=== PATIENT | male | born 1970 | race Caucasian/White ===

== ENCOUNTER 2018-09-22 01:46 | Observation (INO) | payer BC, SELFPAY ==
[2018-09-22] VITALS (9 sets, daily range): BP systolic 121–157; BP diastolic 72–118; PULSE 79–99; RESP 16–24; TEMP 36.3–36.9; O2SAT 93–98; BMI 33.3
--- NOTE | 2018-09-22 | DI.RAD.S_ITS ---
PROCEDURE: XR ACUTE ABDOMEN SERIES INDICATIONS: f/u ct scan TECHNIQUE: One view chest and two views of the abdomen were acquired. COMPARISON: [facility], CT, CT ABDOMEN PELVIS W CON, 09/22/2018, 2:39. FINDINGS: Surgical changes and devices: None. Chest: Lungs are clear. Heart size is normal. No pleural effusions. No pneumoperitoneum. Abdomen: Multiple distended small bowel loops are seen within the left upper quadrant, demonstrating air-fluid levels and suggestion bowel wall thickening. Air and stool are seen within the colon. No suspicious calcifications. Visualized solid organ contours appear normal. Contrast is identified within the urinary bladder. Bones: No suspicious bony lesions. IMPRESSION: 1. Small bowel obstruction predominantly seen within the left upper quadrant has not significantly changed. 2. No acute cardiopulmonary process of the chest. Dictated by: Wisam Berrios M.D. on 09/22/2018 at 10:57 Approved by: Wisam Berrios M.D. on 09/22/2018 at 10:59
--- NOTE | 2018-09-22 | DI.RAD.S_ITS ---
PROCEDURE: FL UPPER GI SMALL BOWEL INDICATIONS: clarify obstructive process. therapeutic COMPARISON: [facility], CT, CT ABDOMEN PELVIS W CON, 09/22/2018, 2:39. [facility], CR, XR ACUTE ABDOMEN SERIES, 09/22/2018, 11:32. FINDINGS: Upper GI and small bowel follow-through was performed with Gastrografin. KUB: Preprocedural colored liquid plastic applier film shows a nonspecific bowel gas pattern with abundant proximal small bowel gas and proximal colonic gas and paucity of distal small bowel gas. No suspicious abdominal calcifications. Visualized solid organ contours appear normal in size. No suspicious bony abnormalities. Esophagus: There is normal peristalsis. No strictures, extrinsic mass effects, or diverticula. No hiatal hernias or elicited gastroesophageal reflux. Stomach: The stomach nondistended and has normal rugal fold thickness. The pylorus and duodenal bulb have a normal morphology. Small bowel: Proximal small bowel loops are slightly distended measuring up to 5 cm. Distal small bowel loops are normal in caliber. There is rapid transit time with oral contrast reaching colon less than 20 minutes. Jejunal and ileal folds are normal. No strictures, intraluminal masses, or extrinsic mass effects. The terminal ileum is identified and appears normal. IMPRESSION: There is rapid small bowel transit time with the oral contrast reaching colon within 20 minutes. The proximal small bowel loops are dilated measuring up to 5 cm. Distal small bowel loops are normal in caliber. Small bowel obstruction seen on CT is likely partial or intermittent. Dictated by: Zayda Merino M.D. on 09/23/2018 at 10:22 Approved by: Zayda Merino M.D. on 09/23/2018 at 10:31
[2018-09-22] MEDS: ONDANSETRON 4 MG/2 ML INJ IV ×4 (02:21→19:24)
[2018-09-22 02:22] LABS: Add Manual Diff / Slide Review NO; Basophils Absolute Auto 100 /uL (0-100); Basophils Percent Auto 0.5 % (0-2); Eosinophils Absolute Auto 200 /uL (0-450); Eosinophils Percent Auto 1.8 % (2-4); Hematocrit 46.9 % (41-53); Hemoglobin 16.1 g/dL (13.5-17.5); Lymphocytes Absolute Auto 2200 /uL (1100-4500); Lymphocytes Percent Auto 23.3 % (25-40); Mean Corpuscular HGB Conc 34.4 % (30-36); Mean Corpuscular Hemoglobin 29.5 PG (26-34); Mean Corpuscular Volume 85.9 fL (80-100); Monocytes Absolute Auto 600 /uL (0-900); Monocytes Percent Auto 6.8 % (3-14); Neutrophils Absolute Auto 6400 /uL (1500-7000); Neutrophils Percent Auto 67.6 % (50-75); Platelet Count 233 X10^3/uL (150-400); Red Blood Cell Count 5.46 X10^6/uL (4.5-5.9); White Blood Cell Count 9.5 X10^3/uL (4.5-11.0)
[2018-09-22] MEDS: SODIUM CHLORIDE 0.9% 1,000 ML 1000 ML IV (02:22)
[2018-09-22] MEDS: KETOROLAC 60 MG/2 ML VIAL 30 MG IV (02:22)
[2018-09-22 02:27] LABS: Alanine Aminotransferase 40 IU/L (21-72); Albumin 4.6 g/dL (3.5-5.0); Albumin Globulin Ratio 1.2 (1.0-2.8); Alkaline Phosphatase 153 U/L (38-126); Aspartate Aminotransferase 30 IU/L (17-59); Bilirubin Total 0.6 mg/dL (0.2-1.3); Blood Urea Nitrogen 12 mg/dL (9-20); Calcium 10.3 mg/dL (8.4-10.2); Carbon Dioxide 28 mmol/L (22-32); Chloride 99 mmol/L (98-107); Estimated Glomerular Filt Rate > 60.0 mL/min (>60); Globulin 3.8 g/dL (1.7-4.1); Glucose 368 mg/dL (70-100); HEMOLYSIS 22 (0-50); Lipase 76 U/L (23-300); Potassium 4.2 mmol/L (3.4-5.1); Sodium 139 mmol/L (137-145); Total Protein 8.4 g/dL (6.3-8.2)
--- NOTE | 2018-09-22 02:34 | DI.CT.S_ITS ---
PROCEDURE: CT ABDOMEN PELVIS W CON INDICATIONS: abdominal pain, multiple hernias TECHNIQUE: After the administration of oral and intravenous contrast, 5 mm thick sections acquired from the diaphragms to the symphysis. 5 mm thick coronal and sagittal reformats were performed. For radiation dose reduction, the following was used: automated exposure control, adjustment of mA and/or kV according to patient size. COMPARISON: None. FINDINGS: Image quality: Excellent. ABDOMEN: Lung bases: There is minimal dependent atelectasis. Heart size is normal. Solid organs: There is mild hypoattenuation of the liver consistent with fatty infiltration. The gallbladder is nondistended without calcified gallstones. Biliary system is non-dilated. Pancreas enhances normally. Spleen is normal in size and enhancement. No adrenal nodules. Kidneys are normal in size and enhancement, without hydronephrosis. Peritoneum and bowel: There is segmental dilatation of multiple loops of small bowel measuring up to 4.3 cm in diameter with air-fluid levels. There is an associated transition point within a small left periumbilical hernia with herniation of a short segment of small bowel. Distal to this hernia, the small bowel loops are nondistended. The findings are consistent with a small bowel obstruction. There is also a small right periumbilical and a small umbilical hernia containing short segments of small bowel without evidence of associated obstruction or strangulation. Surgical bowel sutures are demonstrated within the midabdomen. There is colonic diverticulosis without diverticulitis. No free fluid or air. Nodes and vessels: No retroperitoneal or mesenteric adenopathy. Aorta and inferior vena cava are normal in caliber. Miscellaneous: As noted above, there are bilateral small paraumbilical hernias and a small umbilical hernia. These contain short segments of small bowel with associated bowel section involving the left periumbilical hernia. PELVIS: Genitourinary: Bladder wall thickness is normal. Miscellaneous: No inguinal hernias or adenopathy. Bones: No suspicious bony lesions. No vertebral body compression fractures. IMPRESSION: 1. Small bowel obstruction associated with a herniated short segment of bowel in a left periumbilical hernia as described. No associated definite bowel wall thickening, free fluid or free air. 2. Additional small umbilical and right cerebellar hernias containing short segments of small bowel without associated obstruction or strangulation. 3. Colonic diverticulosis without acute diverticulitis. 4. Hepatic steatosis. Findings discussed with Dr. Munguia on 09/22/18 at 3:16 AM by [facility] radiology services. Dictated by: Prasanna Gomez M.D. on 09/22/2018 at 8:21 Approved by: Prasanna Gomez M.D. on 09/22/2018 at 8:28
--- NOTE | 2018-09-22 02:34 | ED.ABDPAIN ---
HPI - Abdominal Pain General Chief Complaint: Abdominal Pain Stated Complaint: abdominal pain vomiting Time Seen by Provider: 09/22/18 02:12 Source: patient Mode of arrival: ambulatory Limitations: no limitations History of Present Illness HPI narrative: Patient is a 48-year-old male presenting with abdominal pain and vomiting ongoing for the last 5-6 hours. She has a history of colectomy and has a multiple abdominal hernias for which he wears an abdominal binder for. He has not had any fever or chills. He had a regular bowel movement this morning. He is diabetic and has been taking his insulin. He feels like pain Comes from his back on both sides and wraps around the his abdomen. No radiation to the groin. He cannot stop vomiting and the pain is quite intense. MD complaint: abdominal pain Onset (ago): hour(s) Pain Consistency: constant Related Data Home Medications Medication Instructions Recorded Confirmed . (No Home Medications) #0 08/07/06 insulin glargine [Lantus U-100 42 unit SUBCUT DAILY 09/22/18 09/22/18 Insulin] metformin 1,000 mg PO BID 09/22/18 09/22/18 Allergies Allergy/AdvReac Type Severity Reaction Status Date / Time No Known Drug Allergies Allergy Verified 09/22/18 03:04 Review of Systems Review of Systems ROS Unobtainable: All systems reviewed & are unremarkable except as noted in HPI and below Constitutional Denies chills, Denies fever(s), Denies lethargy and Denies weakness Cardiovascular Denies chest pain, Denies irregular heart rhythm, Denies lightheadedness, Denies palpitations, Denies dyspnea, Denies dyspnea on exertion and Denies orthopnea Respiratory Denies cough, Denies dyspnea, Denies dyspnea on exertion and Denies wheezing Gastrointestinal Gastrointestinal: Reports as per HPI, Reports abdominal pain, Reports nausea and Reports vomiting Genitourinary Denies hematuria, Denies flank pain, Denies urinary incontinence and Denies urinary urgency Musculoskeletal Denies back pain, Denies muscle weakness, Denies numbness and Denies tingling Integumentary/Breasts Denies pruritus, Denies erythema, Denies rash and Denies wounds Neurologic Denies numbness, Denies tingling and Denies weakness Endocrine Denies palpitations Allergic/Immunologic Denies wheezing PFSH Medical History Diabetes (Acute) Surgical History H/O colectomy (Acute) Social History Smoking Status: Former smoker Exam Initial Vital Signs Initial Vital Signs: Vital Signs Temperature 97.6 F 09/22/18 01:54 Pulse Rate 96 H 09/22/18 01:54 Respiratory Rate 24 09/22/18 01:54 Blood Pressure 151/118 H 09/22/18 01:54 Pulse Oximetry 98 09/22/18 01:54 GENERAL: actively vomiting diaphoretic appears in pain HEENT: Head atraumatic,EOMI, pupils reactive, CARDIOVASCULAR: Regular rate and rhythm without murmurs, rubs or gallops. RESPIRATORY: Breath sounds equal bilaterally, no wheezes rales or rhonchi. ABDOMEN: obese relatively soft multiple scars, some left upper quadrant pain without guarding or rebound hernias appreciated but easily reducible EXTREMITIES: Normal range of motion, no clubbing or edema. Neurovascularly intact NEUROLOGICAL: Alert and oriented x4.Normal gait and speech. SKIN: Warm, dry, no laceration, no petechiae, no rashes or lesions. Course Orders Ordered: ED Orders 09/22/18 02:09 Complete Blood Count AUTO DIFF Stat Comprehensive Metabolic Panel Stat Lipase Stat 09/22/18 02:34 CT abdomen pelvis w con Stat Sodium Chloride (Normal Saline 0.9%) 1,000 mls @ 1,000 mls/hr IV CONT THERON Last Infusion: 09/22/18 03:30 Dose: 0 mls/hr Admin: 09/22/18 02:22 Dose: 1,000 mls/hr Morphine Sulfate (Morphine) 2 mg IV Q4HR PRN PRN Reason: Pain, Moderate (4-6) Ondansetron HCl (Zofran) 4 mg IV Q4HR PRN PRN Reason: Nausea And Vomiting Discontinued Medications Ketorolac Tromethamine (Toradol) 30 mg IV NOW ONE Stop: 09/22/18 02:13 Last Admin: 09/22/18 02:22 Dose: 30 mg Morphine Sulfate (Morphine) 4 mg IV NOW ONE Stop: 09/22/18 03:04 Last Admin: 09/22/18 03:04 Dose: 4 mg Ondansetron HCl (Zofran) 4 mg IV NOW ONE Stop: 09/22/18 02:13 Last Admin: 09/22/18 02:21 Dose: 4 mg Vital Signs - 8 hr 09/22/18 01:54 09/22/18 02:30 09/22/18 03:21 Temperature 97.6 F Pulse Rate 96 H 80 99 H Respiratory Rate 24 21 19 Blood Pressure 151/118 H Blood Pressure [Left Arm] 155/90 H 157/87 H Pulse Oximetry 98 94 93 09/22/18 03:30 Temperature Pulse Rate 97 H Respiratory Rate 21 Blood Pressure Blood Pressure [Left Arm] 152/88 H Pulse Oximetry 96 MDM - Abdominal Pain Lab Data Attestation: I reviewed the patient's lab results. Result diagrams: 09/22/18 02:09 09/22/18 02:09 Lab Results 09/22/18 09/22/18 Range/Units 02:09 02:09 WBC 9.5 (4.5-11.0) X10^3/uL RBC 5.46 (4.5-5.9) X10^6/uL Hgb 16.1 (13.5-17.5) g/dL Hct 46.9 (41-53) % MCV 85.9 (80-100) fL MCH 29.5 (26-34) PG MCHC 34.4 (30-36) % RDW 14.0 (11.6-14.8) % Plt Count 233 (150-400) X10^3/uL Neut % (Auto) 67.6 (50-75) % Lymph % (Auto) 23.3 L (25-40) % [place] % (Auto) 6.8 (3-14) % Eos % (Auto) 1.8 L (2-4) % Baso % (Auto) 0.5 (0-2) % Neut # (Auto) 6400 (2774-4572) /uL Lymph # (Auto) 2200 (9549-7321) /uL [place] # (Auto) 600 (0-900) /uL Eos # (Auto) 200 (0-450) /uL Baso # (Auto) 100 (0-100) /uL Sodium 139 (137-145) mmol/L Potassium 4.2 (3.4-5.1) mmol/L Chloride 99 (98-107) mmol/L Carbon Dioxide 28 (22-32) mmol/L BUN 12 (9-20) mg/dL Creatinine 0.60 L (0.66-1.25) mg/dL Estimated GFR > 60.0 (>60) mL/min BUN/Creatinine Ratio 20.0 (6-22) Glucose 368 H (70-100) mg/dL Calcium 10.3 H (8.4-10.2) mg/dL Total Bilirubin 0.6 (0.2-1.3) mg/dL AST 30 (17-59) IU/L ALT 40 (21-72) IU/L Alkaline Phosphatase 153 H (38-126) U/L Total Protein 8.4 H (6.3-8.2) g/dL Albumin 4.6 (3.5-5.0) g/dL Globulin 3.8 (1.7-4.1) g/dL Albumin/Globulin Ratio 1.2 (1.0-2.8) Lipase 76 (23-300) U/L Point of care testing: Urine Dip Bedside Urine Glucose 1000 mg/dl Bedside Urine Bilirubin - Negative Bedside Urine Ketone - Negative Urine Specific [place] 1.015 Bedside Urine Occult Blood - Negative Bedside Urine pH 7.0 Bedside Urine Protein +/- 15 Bedside Urine Urobilinogen - Negative Bedside Urine Nitrite - Negative Bedside Urine Leukocytes - Negative Esterase Imaging Data CT scan - abdomen: 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 There is right periumbilical hernia containing loops of small bowel without evidence of obstruction. There is left periumbilical hernia containing loops of small bowel with a developing small bowel obstruction. There is diverticulosis without CT evidence of diverticulitis. there is a surgical suture line in the right rectosigmoid. There is a surgical suture line in the transverse colon. Bladder appears his morphologically unremarkable and there are no stones. Multiple phleboliths in the pelvis. MDM Narrative Medical decision making narrative: patient initially did not want any narcotics due to severe constipation from his surgeries. He was initially given Toradol he says it minimally helped. He was agreeable to morphine. After morphine his pain resolved completely. No longer feeling nauseated abdomen is reexamined and is soft. CT does show partial small bowel obstruction. His symptoms were quite severe for multiple hours prior to arrival. At this point at least should be observed. Dr. Avendano updated patient's symptoms test results agrees with observation requests keeping him NPO. Discharge Plan Departure Patient Disposition: Admitted as Observation Clinical Impression: Partial small bowel obstruction Discharge Date/Time: 09/22/18 03:58 Interventions: ED Discharge Assessment Last Done: 09/22/18 03:57 Admit Date/Time: 09/22/18 03:48 Admit Provider: Goran Avendano
[2018-09-22] MEDS: MORPHINE 4 MG/ML INJ IV (03:04)
--- NOTE | 2018-09-22 05:08 | PC.NURSE ---
Pt admitted at 0405 as AxOx3 very pleasant, ambulating independently. Accompanied by Letty. Has an abdominal binder on for multiple abdominal hernias protruding in stomach for which the LUQ hernia appears to be causing the obstruction as per patient. He states that that particular hernia has been getting larger over a long period of time as well and has some concerns about that. He has had multiple GI surgeries and has had part of his colon removed and resected and had a colostomy at one point that has been reversed. He has about 3-4 BMs a day. He had a BM about an hour before being admitted to the ER he stated. His Bowel sounds are hyperactive and he states he is passing gas. Abdomen is firm, distended, tender, obvious multiple hernias and scars. Reports pain at a 3 out of 10 and tolerable. Reports no nausea at this time after having received Zofran in ER. Stated he vomited every 3-4min at home before coming in. He has +1 pitting edema in his b/l Lower ext for which he is aware and stated in the past he had been on Lasix for it but got off of it because it caused him heart palpitations. Kept NPO. NS@125mL/hr running as ordered.
[2018-09-22] MEDS: SODIUM CHLORIDE 0.9% 1,000 ML 125 ML IV ×3 (05:15→19:47)
--- NOTE | 2018-09-22 08:56 | PC.NURSE ---
Addendum entered by Nayely Carreno R.N. 09/22/18 15:26: Approx 1400 patient C/O sudden onset of severe abd pain and nausea. Reported he feels like the hernia in LUQ abd has popped back out since the doctor was here. Nausea resolved after admin of Zofran. Reported pain tolerable once the nausea resolved. Let him know about the small bowel follow through that will be done tomorrow morning, so likely he'll be staying the night. He wants to go home, but understands the rationale for staying. Original Note: Addendum entered by Nayely Carreno R.N. 09/22/18 11:33: Insulin given as ordered. CBG re-check at 1045 was 243. Patient is awake and alert, oriented X3. Nausea improved with IV Zofran. Reports 4/10 abd pain that is totally tolerable right now. BT+ X4, hypoactive. Reports he is passing flatus. States he thinks his belly is about back to normal with regard to distention. Given swabs and other stuff for oral care. Understands NPO status. IVF per orders, site in R hand WNL. Up independently in room. Transported off floor for x-ray at this time. Original Note: Blood sugar: CBG check [address] Avendano aware of the result. This senior grant writer confirmed that did, in fact, mean to order both IV and SubQ doses of insulin. Will plan to give both as ordered.
[2018-09-22] MEDS: INSULIN REGULAR 100 UNIT/ML 3 ML VIAL SUBCUT (10:00)
[2018-09-22] MEDS: INSULIN REGULAR 100 UNIT/ML 3 ML VIAL IV (10:02)
[2018-09-22] MEDS: MORPHINE 2 MG/ML INJ IV ×2 (11:53→19:23)
--- NOTE | 2018-09-22 12:36 | PM.HP.1 ---
History of Present Illness Date Patient Seen: 09/22/18 Time Patient Seen: 09:36 Chief complaint: abdominal pain vomiting Narrative: Patient is a gentleman admitted through the night with a partial small-bowel obstruction. Patient had the onset of abdominal pain about 4 or 5 hr before coming to the ER. He had been passing flatus and had a bowel movement even just before coming. The pain was quite severe and he was about doubled over due to it. He has had multiple abdominal procedures in the past. He has multiple hernias known. The pain has subsided. He does says some vague discomfort. Patient History Medical History Diabetes (Chronic) Surgical History H/O colectomy (Resolved) History of colostomy (Resolved) History of colostomy reversal (Resolved) Family & Social History Social History: household members family Prior Living Arrangements House Safety & Behavioral: Feels Safe in Current Yes Environment Been Physically Hurt or No Threatened By a Person Suicidal Ideation Description None Suicide Plan Description No Plan Tobacco & Substance use: Smoking Status Former smoker alcohol intake frequency other Substance Use Type does not use Meds Home Medications Medication Instructions Recorded Confirmed Type insulin glargine [Lantus U-100 42 unit SUBCUT DAILY 09/22/18 09/22/18 History Insulin] metformin 1,000 mg PO BID 09/22/18 09/22/18 History Allergies Allergy/AdvReac Type Severity Reaction Status Date / Time No Known Drug Allergies Allergy Verified 09/22/18 03:04 Review of Systems Review of Systems Patient wears glasses. Denies double vision pain is eyes earaches or sore throat. No tooth aches. No cough cold or asthma. No chest pain or murmurs. No heart problems. No black or bloody bowel movements. Last colonoscopy 3 years ago. No dysuria hematuria or kidney stones. No seizures or blackouts. No unusual bruising or bleeding. No problems with his thyroid but he is diabetic type 2 in his sugars usually run in the 130s to 140s range. Exam Vital Signs (past 8 hours): - 09/22/18 07:25 Temperature 97.4 F L Pulse Rate 98 H Respiratory Rate 18 Blood Pressure 130/78 Pulse Oximetry 95 Oxygen Delivery Method Room Air Narrative Exam Narrative: Co operative pleasant gentleman in no apparent distress. Eyes are nonicteric. Ears without lesion. Nasal septum is midline without polyps. Oral mucosa pink and moist teeth are intact. No nodes in the neck supraclavicular areas. Trachea is midline and mobile. No masses or tenderness in the neck or thyroid. Lungs are clear to auscultation without rales or rhonchi could percussion. Heart regular rate and rhythm without murmur gallop. No heave lift or thrill. Abdomen is protuberant possibly distended soft. He has multiple hernias. All of them feel reduced.(after abdominal x-rays were done I went back and re-examined the patient and they still of field reduced including the particular when of concern based on the CT in the x-rays.) NO OBVIOUS ENLARGEMENT OF LIVER OR SPLEEN. EXTREMITIES WITHOUT CYANOSIS CLUBBING EDEMA OR DEFORMITY. PATIENT IS ALERT AND ORIENTED X3. SPEECH RATE AND CONTENT ARE APPROPRIATE. AFFECT IS APPROPRIATE. Objective Imaging CT scan - abdomen: My impression: Suggest the presence of a partial small bowel obstruction secondary to hernia. Labs Result Diagrams: 09/22/18 02:09 09/22/18 02:09 Labs: Laboratory Results - last 24 hr 09/22/18 09/22/18 02:09 02:09 WBC 9.5 RBC 5.46 Hgb 16.1 Hct 46.9 MCV 85.9 MCH 29.5 MCHC 34.4 RDW 14.0 Plt Count 233 Neut % (Auto) 67.6 Lymph % (Auto) 23.3 L [place] % (Auto) 6.8 Eos % (Auto) 1.8 L Baso % (Auto) 0.5 Neut # (Auto) 6400 Lymph # (Auto) 2200 [place] # (Auto) 600 Eos # (Auto) 200 Baso # (Auto) 100 Sodium 139 Potassium 4.2 Chloride 99 Carbon Dioxide 28 BUN 12 Creatinine 0.60 L Estimated GFR > 60.0 BUN/Creatinine Ratio 20.0 Glucose 368 H Calcium 10.3 H Total Bilirubin 0.6 AST 30 ALT 40 Alkaline Phosphatase 153 H Total Protein 8.4 H Albumin 4.6 Globulin 3.8 Albumin/Globulin Ratio 1.2 Lipase 76 Assessment & Plan Plan: Assessment/Plan Narrative: X-rays do not exactly fit the clinical picture am seeing. I will order a small-bowel follow-through. I can't really feel incarcerated hernia and certainly not 1 causing obstruction. X-rays however suggest otherwise though he has clinically improved since the CT was performed. Will continue hydration IV fluids. Sugar control with as needed insulin.
[2018-09-22] MEDS: INSULIN ASPART 100 UNIT/ML INSULN PEN SUBCUT ×2 (14:27→19:24)
--- NOTE | 2018-09-22 21:22 | CM.MNRNOTE ---
Pt has had relatively uneventful evening. Med at 1915 w/ MS for discomfort ans zofran for nausea w/good relief. IVF NS @ 125 via pump into right hand w/o incidence. 1800 CBG = 164, 2u S/S given. Remains NPO for small bowel follow through in am. Call light w/in reach. Continue w/plan of care.
[2018-09-23] VITALS: BP 121/72; PULSE 96; RESP 16; TEMP 36.6; O2SAT 96
[2018-09-23] MEDS: SODIUM CHLORIDE 0.9% 1,000 ML 125 ML IV (03:56)
--- NOTE | 2018-09-23 04:02 | PC.NURSE ---
ASSUMED CARE OF PT AT 2300. PT SLEEPING DURING HAND-OFF REPORT. AWAKENS AT APPROX 0030. DENIES PAIN OR NAUSEA. ABD BINDER IN PLACE. IVF INFUSING PER ORDERS. AMBULATING IN ROOM AND HALLS INDEPENDENTLY. CALLING APPROPRIATELY FOR NEEDS.
[2018-09-23 05:00] VITALS: BP 122/69; PULSE 95; RESP 16; TEMP 36.7; O2SAT 97
[2018-09-23] MEDS: INSULIN ASPART 100 UNIT/ML INSULN PEN SUBCUT ×2 (05:54→12:30)
[2018-09-23 07:20] VITALS: BP 117/71; PULSE 85; RESP 16; TEMP 36.6; O2SAT 94
--- NOTE | 2018-09-23 08:08 | PC.NURSE ---
0805 Pt gone for [facility] via w/c.
--- NOTE | 2018-09-23 09:15 | PC.NURSE ---
0860 Pt returned from radiology via w/c, post sml bowel follow thru.
[2018-09-23 11:38] VITALS: BP 112/74; PULSE 76; RESP 18; TEMP 36.4; O2SAT 94
--- NOTE | 2018-09-23 15:15 | P.DS_ITS ---
History of Present Illness Chief complaint: abdominal pain vomiting Narrative: Patient is a gentleman admitted through the night with a partial small-bowel obstruction. Patient had the onset of abdominal pain about 4 or 5 hr before coming to the ER. He had been passing flatus and had a bowel movement even just before coming. The pain was quite severe and he was about doubled over due to it. He has had multiple abdominal procedures in the past. He has multiple hernias known. The pain has subsided. He does says some vague discomfort. Discharge Providers Date of admission: 09/22/18 03:48 Primary care physician: Godfrey Juarez MD Discharge provider: Goran Avendano MD Discharge Date: 09/23/18 Summary Discharge Diagnosis: Acute Partial small bowel obstruction secondary to incisional hernia. Resolved at discharge. Diabetes mellitus adult onset. The a chronic Obesity with a BMI of 39. Chronic Hospital Course: Patient was admitted for observation. His pain rapidly subsided. Initial exam failed to reveal any incarcerated hernia. There is mild tenderness. Patient underwent a small-bowel follow-through which showed rapid progress of contrast through the intestine to the colon. The patient's symptoms resolved. He tolerated a diet was discharged to follow up in the office as needed. He was advised to get his hernias fixed. He has multiple hernias I recommended that he see the hernia clinic at the [facility] for a repair of these complex hernias. Exam Vital Signs (past 8 hours): - 09/23/18 07:20 09/23/18 11:38 Temperature 97.8 F 97.5 F L Pulse Rate 85 76 Respiratory Rate 16 18 Blood Pressure 117/71 112/74 Pulse Oximetry 94 94 Oxygen Delivery Method Room Air Oxygen Flow Rate 0 Narrative Exam Narrative: Lungs are clear no rales or rhonchi heart regular rate and rhythm no murmur or gallop abdomen is protuberant soft nontender. Patient has hernias are noted all reducible. Objective Labs Result Diagrams: 09/22/18 02:09 09/22/18 02:09 Discharge Plan Discharge Plan Patient Disposition: Home Discharge comment: Resume your medications this evening. I would recommend that you be seen at the [facility] these complicated [facility]. Discharge Med Rec/Prescriptions Prescriptions: Continue metformin 1,000 mg Tablet 1,000 mg PO BID RF: 0 insulin glargine [Lantus U-100 Insulin] 100 unit/mL Solution 42 unit SUBCUT DAILY RF: 0 Follow up/Referrals: Lenin Wilson MD [Non-Staff] - Provider Discharge Instructions Diet: Carb-consistent/Diabetic Activity: As tolerated Skin/Wound/Dressing Care Report to your healthcare provider any signs of infection, such as:: increased pain Visit Report/Discharge Packet Instructions: DI for Small Bowel Obstruction Visit Report Forms: Stroke Signs & Symptoms Discharge Data Primary Care Provider: Godfrey Juarez Attending Provider: Goran Avendano Admit Date/Time: 09/22/18 03:48 Discharges patient from system. Discharge Date/Time: 09/23/18 13:41
== END 2018-09-23 13:41 | disposition home or self-care (01) ==
LOC: ED 03:36 → AC 03:50
PROVIDERS: Admitting Provider Specialist; Emergency Provider Emergency Medicine; PCP Family Medicine; Visit Provider Specialist
DX: K43.2 Incisional hernia without obstruction or gangrene (principal); R10.9 Unspecified abdominal pain; R11.11 Vomiting without nausea; E11.9 Type 2 diabetes mellitus without complications; Z79.4 Long term (current) use of insulin; Z87.891 Personal history of nicotine dependence; E66.9 Obesity, unspecified; Z68.39 Body mass index [BMI] 39.0-39.9, adult; K56.600 Partial intestinal obstruction, unspecified as to cause
CPT/HCPCS: 36591; 74022; 74177; 74245; 80053; 81003; 82962; 83690; 85025; 96361; 96374; 96375; 99217; 99219; 99283; 99285; G0378; J1885; J2270; J2405; Q9967

== ENCOUNTER 2019-04-11 07:13 | Emergency (ER) | payer BC, SELFPAY ==
[2018-09-22 03:50] VITALS: BMI 33.3
[2019-04-11] VITALS (10 sets, daily range): BP systolic 114–176; BP diastolic 57–86; PULSE 57–88; RESP 12–25; TEMP 36.6; O2SAT 92–99
--- NOTE | 2019-04-11 07:20 | DI.CT.S_ITS ---
PROCEDURE: CT ABDOMEN PELVIS W CON INDICATIONS: severe pain, bleeding, recent abdominal surgery TECHNIQUE: After the administration of intravenous contrast, 5 mm thick sections acquired from the diaphragm to the symphysis. 5 mm coronal and sagittal reformats were acquired. For radiation dose reduction, the following was used: automated exposure control, adjustment of mA and/or kV according to patient size. COMPARISON: [facility], CT, CT ABDOMEN PELVIS W CON, 09/22/2018, 2:39. FINDINGS: Image quality: Excellent. ABDOMEN: Lung bases: Bilateral posterior dependent atelectasis/scarring. Heart size is normal. Solid organs: Liver is normal in size and enhancement. Gallbladder grossly unremarkable. Biliary system is non dilated. Pancreas enhances normally. Spleen is normal in size and enhancement. No adrenal nodules. Kidneys demonstrate normal size and enhancement, without hydronephrosis. Peritoneum and bowel: Bowel loops demonstrate normal wall thickness and caliber. No free fluid or air. Colonic diverticulosis. Normal appendix Nodes and vessels: No retroperitoneal or mesenteric adenopathy by size criteria. Aorta and inferior vena cava are normal in size. Miscellaneous: Post surgical changes related to repair of ventral hernia. There is a massive anterior abdominal wall hematoma measuring 31 x 4.9 cm on axial image 47 series 2, with several surgical drains in place. There are scattered foci of subcutaneous gas presumably postoperative in nature. Midline skin nikolas. No definite active extravasation of contrast is identified. PELVIS: Genitourinary: Bladder wall thickness is normal. Miscellaneous: No inguinal hernias or adenopathy. Bones: No suspicious bony lesions. No vertebral body compression fractures. IMPRESSION: Postsurgical changes related to abdominal surgery and repair of ventral hernia. Massive 31 cm anterior abdominal wall hematoma. No definite active extravasation of contrast identified. No acute intraperitoneal findings. Dictated by: Josue Upton M.D. on 04/11/2019 at 8:50 Approved by: Josue Upton M.D. on 04/11/2019 at 8:57
--- NOTE | 2019-04-11 07:29 | PC.NURSE ---
Surgical incision closed with nikolas running midline down abd from just below xiphoid process to just above belt line. 2 ISAMAR drains with sanguineous drainage, pt states increase output.
--- NOTE | 2019-04-11 07:29 | ED.ABDPAIN ---
HPI - Abdominal Pain General Chief Complaint: Abdominal Pain Stated Complaint: Surgical Site Bleeding Time Seen by Provider: 04/11/19 07:15 Source: patient, family and EMS Mode of arrival: EMS Limitations: no limitations History of Present Illness HPI narrative: 48-year-old male nonsmoker with history of recent complicated hernia repair at the [facility] 7 days ago presents by EMS after he felt a pop in his abdomen this morning and significant bleeding from the incision site as well as noted abdominal swelling and increasing pain. The patient had been doing quite well at home and was weaning himself off of pain meds, he was changing his ISAMAR drains twice daily and noticed yesterday 1 of them had clotted a bit. Today he was passing gas and having a large bowel movement, with minimal exertion when soon thereafter he felt a significant pop Related Data Home Medications Medication Instructions Recorded Confirmed Lantus U-100 Insulin 58 unit SUBCUT DAILY 09/22/18 09/22/18 metformin 1,000 mg PO BID 09/22/18 09/22/18 docusate sodium 100 mg PO DAILY 04/11/19 04/11/19 hydrochlorothiazide 25 mg PO DAILY 04/11/19 04/11/19 ibuprofen 600 mg PO QID PRN 04/11/19 04/11/19 insulin lispro 8 unit SUBCUT TID 04/11/19 04/11/19 metoprolol succinate 50 mg PO DAILY 04/11/19 04/11/19 Allergies Allergy/AdvReac Type Severity Reaction Status Date / Time No Known Drug Allergies Allergy Verified 09/22/18 03:04 Review of Systems Constitutional Denies chills, Denies fever(s), Denies lethargy, Reports poor appetite and Reports weakness Eyes Denies change in vision, Denies eye discharge, Denies irritation and Denies loss of vision ENT Ears, Nose, Mouth, and Throat: Denies change in voice, Denies neck pain and Denies sore throat Cardiovascular Denies chest pain, Denies irregular heart rhythm, Denies lightheadedness, Denies palpitations, Denies dyspnea, Denies dyspnea on exertion and Denies orthopnea Respiratory Denies cough, Denies dyspnea, Denies dyspnea on exertion and Denies wheezing Gastrointestinal Gastrointestinal: Reports abdominal pain, Denies change in bowel habits, Denies diarrhea, Reports nausea and Denies vomiting Genitourinary Denies hematuria, Denies flank pain, Denies urinary incontinence and Denies urinary urgency Musculoskeletal Denies neck pain Integumentary/Breasts Denies pruritus, Denies erythema, Denies rash and Denies wounds Neurologic Denies confusion, Denies loss of vision and Reports weakness Psychiatric Denies anxiety, Denies confusion, Denies depression, Denies homicidal ideation and Denies suicidal ideation Endocrine Denies palpitations Hematologic/Lymphatic Denies easy bruising Allergic/Immunologic Denies wheezing PFSH Medical History Diabetes (Chronic) Surgical History H/O colectomy (Resolved) History of colostomy (Resolved) History of colostomy reversal (Resolved) Family History (Updated 09/22/18 @ 12:40 by Goran Avendano MD) Mother Cancer Other Diabetes mellitus Social History household members: family Smoking Status: Former smoker Family History Mother Cancer Other Diabetes mellitus Social History household members: family Smoking Status: Former smoker Exam Narrative Exam Narrative: GENERAL: 48M appears stated age, in mild distress, obese, dressings on abdomen saturated in bright red blood HEAD: Atraumatic. Normocephalic. No temporal or scalp tenderness. EYES: Pupils equal round and reactive. Extraocular motions intact. No scleral icterus. No injection or drainage. ENT: Nose without bleeding, purulent drainage or septal hematoma. Throat without erythema, tonsillar hypertrophy or exudate. Uvula midline. Airway patent. NECK: Trachea midline. No JVD or lymphadenopathy. Supple, nontender, no meningeal signs. CARDIOVASCULAR: Regular rate and rhythm without murmurs, gallops, or rubs. RESPIRATORY: Clear to auscultation. Breath sounds equal bilaterally. No wheezes, rales, or rhonchi. GASTROINTESTINAL: Abdomen soft, mild tenderness, distended, no wound dehiscence but small trickle of bright red blood coming from the incision about a [address]. No hepato-splenomegaly, or palpable masses. EXTREMITIES: No clubbing, cyanosis, or edema. No joint tenderness, effusion, or edema noted. BACK: Nontender without deformity or crepitance. No flank tenderness. NEURO: AOx3. SKIN: No rash or erythema. Initial Vital Signs Initial Vital Signs: Vital Signs Temperature 97.8 F 04/11/19 07:12 Pulse Rate 67 04/11/19 07:12 Respiratory Rate 21 04/11/19 07:12 Blood Pressure 114/57 L 04/11/19 07:12 Pulse Oximetry 94 04/11/19 07:12 Course Orders Ordered: Discontinued Medications Hydromorphone HCl (Dilaudid) 0.5 mg IV Q30MIN PRN PRN Reason: Pain, Severe (7-10) Last Admin: 04/11/19 11:47 Dose: 0.5 mg Admin: 04/11/19 08:28 Dose: 0.5 mg Admin: 04/11/19 07:57 Dose: 0.5 mg Hydroxyzine HCl (Vistaril) 50 mg IM NOW ONE Stop: 04/11/19 11:14 Last Admin: 04/11/19 11:17 Dose: 50 mg Ondansetron HCl (Zofran) 4 mg IV Q4HR PRN PRN Reason: Nausea And Vomiting Last Admin: 04/11/19 07:57 Dose: 4 mg Consultations Consultation #1: call to Dr. Jesus at (his surgeon). We have reviewed the case, labs, exam, CT and he agrees patient should be at for evaluation, repeat labs. Patient and family on board with the plan, all questions answered to their apparent satisfaction. Dr. Jesus wants patient at [facility] in [place] Vital Signs - 8 hr 04/11/19 07:12 04/11/19 07:30 04/11/19 08:00 Temperature 97.8 F Pulse Rate 67 75 78 Respiratory Rate 21 17 16 Blood Pressure 114/57 L Blood Pressure [Right Arm] 122/61 122/61 Pulse Oximetry 94 92 92 04/11/19 08:30 04/11/19 09:00 04/11/19 09:30 Temperature Pulse Rate 72 57 L 62 Respiratory Rate 19 12 16 Blood Pressure Blood Pressure [Right Arm] 128/73 126/75 176/86 H Pulse Oximetry 95 99 99 04/11/19 10:00 04/11/19 10:30 Temperature Pulse Rate 76 88 Respiratory Rate 18 25 H Blood Pressure Blood Pressure [Right Arm] 140/86 140/86 Pulse Oximetry 98 94 MDM - Abdominal Pain Lab Data Result diagrams: 04/11/19 11:25 04/11/19 07:30 Lab Results 04/11/19 04/11/19 04/11/19 Range/Units 07:30 07:30 07:30 WBC 10.1 (4.5-11.0) X10^3/uL RBC 3.88 L (4.5-5.9) X10^6/uL Hgb 11.5 L (13.5-17.5) g/dL Hct 34.2 L (41-53) % MCV 87.9 (80-100) fL MCH 29.6 (26-34) PG MCHC 33.7 (30-36) % RDW 13.6 (11.6-14.8) % Plt Count 367 (150-400) X10^3/uL Neut % (Auto) 74.8 (50-75) % Lymph % (Auto) 15.9 L (25-40) % Callaway % (Auto) 5.3 (3-14) % Eos % (Auto) 3.1 (2-4) % Baso % (Auto) 0.9 (0-2) % Neut # (Auto) 7600 H (1391-7001) /uL Lymph # (Auto) 1600 (3240-9232) /uL Callaway # (Auto) 500 (0-900) /uL Eos # (Auto) 300 (0-450) /uL Baso # (Auto) 100 (0-100) /uL Sodium 137 (137-145) mmol/L Potassium 3.4 (3.4-5.1) mmol/L Chloride 98 (98-107) mmol/L Carbon Dioxide 30 (22-32) mmol/L BUN 14 (9-20) mg/dL Creatinine 0.80 (0.66-1.25) mg/dL Estimated GFR > 60.0 (>60) mL/min BUN/Creatinine Ratio 17.5 (6-22) Glucose 207 H (70-100) mg/dL Calcium 9.0 (8.4-10.2) mg/dL Blood Type O Positive Antibody Screen Negative 04/11/19 Range/Units 11:25 WBC (4.5-11.0) X10^3/uL RBC (4.5-5.9) X10^6/uL Hgb 11.4 L (13.5-17.5) g/dL Hct 34.6 L (41-53) % MCV (80-100) fL MCH (26-34) PG MCHC (30-36) % RDW (11.6-14.8) % Plt Count (150-400) X10^3/uL Neut % (Auto) (50-75) % Lymph % (Auto) (25-40) % Callaway % (Auto) (3-14) % Eos % (Auto) (2-4) % Baso % (Auto) (0-2) % Neut # (Auto) (2889-6704) /uL Lymph # (Auto) (5563-2385) /uL Callaway # (Auto) (0-900) /uL Eos # (Auto) (0-450) /uL Baso # (Auto) (0-100) /uL Sodium (137-145) mmol/L Potassium (3.4-5.1) mmol/L Chloride (98-107) mmol/L Carbon Dioxide (22-32) mmol/L BUN (9-20) mg/dL Creatinine (0.66-1.25) mg/dL Estimated GFR (>60) mL/min BUN/Creatinine Ratio (6-22) Glucose (70-100) mg/dL Calcium (8.4-10.2) mg/dL Blood Type Antibody Screen Imaging Data CT scan - abdomen: Radiologist's impression: [place] [address] CT Scan Report Signed Patient: Edgardo Evans KMR#: [id number] : 1970Acct:[id number] Age/Sex: 48 / MDate of Service: 04/11/19 Loc: ED Accession Number: [id number] Procedure: CT abdomen pelvis w con Ordering Provider: Matthew Cardenas D.O. PROCEDURE: CT ABDOMEN PELVIS W CON INDICATIONS: severe pain, bleeding, recent abdominal surgery TECHNIQUE: After the administration of intravenous contrast, 5 mm thick sections acquired from the diaphragm to the symphysis. 5 mm coronal and sagittal reformats were acquired. For radiation dose reduction, the following was used: automated exposure control, adjustment of mA and/or kV according to patient size. COMPARISON: [facility], CT, CT ABDOMEN PELVIS W CON, 09/22/2018, 2:39. FINDINGS: Image quality: Excellent. ABDOMEN: Lung bases: Bilateral posterior dependent atelectasis/scarring. Heart size is normal. Solid organs: Liver is normal in size and enhancement. Gallbladder grossly unremarkable. Biliary system is non dilated. Pancreas enhances normally. Spleen is normal in size and enhancement. No adrenal nodules. Kidneys demonstrate normal size and enhancement, without hydronephrosis. Peritoneum and bowel: Bowel loops demonstrate normal wall thickness and caliber. No free fluid or air. Colonic diverticulosis. Normal appendix Nodes and vessels: No retroperitoneal or mesenteric adenopathy by size criteria. Aorta and inferior vena cava are normal in size. Miscellaneous: Post surgical changes related to repair of ventral hernia. There is a massive anterior abdominal wall hematoma measuring 31 x 4.9 cm on axial image 47 series 2, with several surgical drains in place. There are scattered foci of subcutaneous gas presumably postoperative in nature. Midline skin nikolas. No definite active extravasation of contrast is identified. PELVIS: Genitourinary: Bladder wall thickness is normal. Miscellaneous: No inguinal hernias or adenopathy. Bones: No suspicious bony lesions. No vertebral body compression fractures. IMPRESSION: Postsurgical changes related to abdominal surgery and repair of ventral hernia. Massive 31 cm anterior abdominal wall hematoma. No definite active extravasation of contrast identified. No acute intraperitoneal findings. Dictated by: Josue Upton M.D. on 04/11/2019 at 8:50 Approved by: Josue Upton M.D. on 04/11/2019 at 8:57 Critical Care Time Critical Care Time: Yes Total Critical Care Time: 30 Attestation: The high probability of a clinically significant, sudden or life threatening deterioration of the [CV] system(s) required my full and direct attention, intervention and personal management. The aggregate critical care time was [30] minutes. This time is in addition to time spent performing reported procedures but includes the following: [x] Data Review and interpretation [x] Patient assessment and monitoring of vital signs [x] Documentation [x] Medication orders and management Discharge Plan Departure Patient Disposition: [facility] Clinical Impression: Postoperative hematoma Qualifiers: Surgical complication system/body Area: subcutaneous tissue Procedure type: non-dermatologic Qualified Code(s): L76.32 - Postprocedural hematoma of skin and subcutaneous tissue following other procedure Discharge Date/Time: 04/11/19 12:20 Interventions: ED Discharge Assessment Last Done: 04/11/19 12:06 Prescriptions: No Action metoprolol succinate 50 mg Tablet Extended Release 24 Hr 50 mg PO DAILY RF: 0 docusate sodium 100 mg Capsule 100 mg PO DAILY RF: 0 hydrochlorothiazide 25 mg Tablet 25 mg PO DAILY RF: 0 insulin lispro 100 unit/mL Solution 8 unit SUBCUT TID RF: 0 ibuprofen 600 mg Tablet 600 mg PO QID PRN (Reason: Pain (Scale Score 1-3)) RF: 0 metformin 1,000 mg Tablet 1,000 mg PO BID RF: 0 Lantus U-100 Insulin 100 unit/mL Solution 58 unit SUBCUT DAILY RF: 0 Referrals: Lenin Wilson MD [Primary Care Provider] -
[2019-04-11 07:38] LABS: Add Manual Diff / Slide Review NO; Basophils Absolute Auto 100 /uL (0-100); Basophils Percent Auto 0.9 % (0-2); Eosinophils Absolute Auto 300 /uL (0-450); Eosinophils Percent Auto 3.1 % (2-4); Hematocrit 34.2 % (41-53); Hemoglobin 11.5 g/dL (13.5-17.5); Lymphocytes Absolute Auto 1600 /uL (1100-4500); Lymphocytes Percent Auto 15.9 % (25-40); Mean Corpuscular HGB Conc 33.7 % (30-36); Mean Corpuscular Hemoglobin 29.6 PG (26-34); Mean Corpuscular Volume 87.9 fL (80-100); Monocytes Absolute Auto 500 /uL (0-900); Monocytes Percent Auto 5.3 % (3-14); Neutrophils Absolute Auto 7600 /uL (1500-7000); Neutrophils Percent Auto 74.8 % (50-75); Platelet Count 367 X10^3/uL (150-400); Red Blood Cell Count 3.88 X10^6/uL (4.5-5.9); Red Cell Distribution Width 13.6 % (11.6-14.8); White Blood Cell Count 10.1 X10^3/uL (4.5-11.0)
[2019-04-11 07:53] LABS: BUN Creatinine Ratio 17.5 (6-22); Blood Urea Nitrogen 14 mg/dL (9-20); Carbon Dioxide 30 mmol/L (22-32); Chloride 98 mmol/L (98-107); Estimated Glomerular Filt Rate > 60.0 mL/min (>60); Glucose 207 mg/dL (70-100); HEMOLYSIS < 15 (0-50); Potassium 3.4 mmol/L (3.4-5.1); Sodium 137 mmol/L (137-145)
[2019-04-11] MEDS: HYDROMORPHONE 0.5 MG INJ IV ×3 (07:57→11:47)
[2019-04-11] MEDS: ONDANSETRON 4 MG/2 ML INJ IV (07:57)
[2019-04-11] MEDS: hydrOXYzine 50 MG/ML INJ IM (11:17)
[2019-04-11 12:09] LABS: Hematocrit 34.6 % (41-53); Hemoglobin 11.4 g/dL (13.5-17.5)
== END 2019-04-11 12:20 | disposition short-term general hospital (02) ==
PROVIDERS: Emergency Provider Emergency Medicine; PCP Specialist
DX: L76.32 Postprocedural hematoma of skin and subcutaneous tissue following other procedure (principal)
CPT/HCPCS: 36415; 74177; 80048; 85014; 85018; 85025; 86850; 86900; 86901; 96372; 96374; 96375; 96376; 99284; J1170; J2405; J3410; Q9967

== ENCOUNTER → 2020-12-26 11:35 | Outpatient (CLI) | payer BC, SELFPAY ==
[2018-09-22 03:50] VITALS: BMI 33.3
[2020-12-26 12:22] LABS: BUN Creatinine Ratio 27.1 (6-22); Blood Urea Nitrogen 19 mg/dL (9-20); Estimated Glomerular Filt Rate > 60.0 mL/min (>60)
--- NOTE | 2020-12-26 12:48 | DI.CT.S_ITS ---
PROCEDURE: CT ABDOMEN PELVIS W CON INDICATIONS: Lower abdominal pain, unspecified TECHNIQUE: After the administration of oral and intravenous contrast, 5 mm thick sections acquired from the diaphragms to the symphysis. 5 mm thick coronal and sagittal reformats were performed. For radiation dose reduction, the following was used: automated exposure control, adjustment of mA and/or kV according to patient size. COMPARISON: [facility], CT, CT ABDOMEN PELVIS W CON, 04/11/2019, 8:07. [facility], CT, CT ABDOMEN PELVIS W CON, 09/22/2018, 2:39. FINDINGS: Image quality: Excellent. ABDOMEN: Lung bases: Lung bases are clear. Heart size is normal. Solid organs: Liver is normal in size and enhancement. Gallbladder appears normal. Biliary system is non-dilated. Pancreas enhances normally. Spleen is normal in size and enhancement. No adrenal nodules. Kidneys are normal in size and enhancement, without hydronephrosis. Peritoneum and bowel: Stomach, small bowel, and colon loops are normal in caliber and wall thickness. No free fluid or air. Nodes and vessels: No retroperitoneal or mesenteric adenopathy. Aorta and inferior vena cava are normal in caliber. Miscellaneous: No ventral hernias. There is a midline abdominal enteric staple line, without evidence of adjacent inflammation or bowel obstruction. PELVIS: Genitourinary: Bladder wall thickness is normal. Miscellaneous: No inguinal hernias or adenopathy. Bones: No suspicious bony lesions. No vertebral body compression fractures. IMPRESSION: No acute disease identified. Postsurgical changes as noted, but no area of intestinal obstruction or perforation is found or evidence of operative complication. Dictated by: Anthony Matthew M.D. on 12/26/2020 at 13:28 Approved by: Anthony Matthew M.D. on 12/26/2020 at 13:30
== END ==
PROVIDERS: PCP Physician Assistant Medical; Referring Provider Physician Assistant Medical; Visit Provider Physician Assistant Medical
DX: R10.30 Lower abdominal pain, unspecified (principal); K59.00 Constipation, unspecified; R11.0 Nausea; Z90.49 Acquired absence of other specified parts of digestive tract; Z98.890 Other specified postprocedural states
CPT/HCPCS: 36415; 74177; 82565; 84520

== ENCOUNTER → 2021-10-09 07:43 | Outpatient (CLI) | payer BC, SELFPAY ==
[2018-09-22 03:50] VITALS: BMI 33.3
--- NOTE | 2021-10-09 | DI.ECHO.S_ITS ---
[facility]---------+ [facility] +---------+ : : [address] : [address] [place] : : : : [id number] : : : : Phone: [phone] Echocardiogram Report + + :Name: LULÚ POLLACK Study Date: 10/09/2021 Height: 74 in : :[facility] ReadingLocation: Weight: 270 lb : : Gender: Male BSA: 2.5 m2 : :: 1970 Age: 51 yrs BP: 140/85 mmHg: :Reason For Study: ATRIAL FIBRILLATION : :Ordering Physician: JENNIFER, : :NANETTE Performed By: Eugenia Moyer : :Referring: NANETTE MURRAY : + + Interpretation Summary 1) Normal left ventricular thickness and size with low normal systolic function (EF 50-55%). 2) Normal right ventricular size and f unction. 3) No significant valvular abnormalities. 4) No prior Echo available for comparison. Procedure: A two-dimensional transthoracic echocardiogram with color flow and Doppler was performed. The study quality was technically adequate. There is no prior echocardiogram noted for this patient. The patient was in atrial fibrillation with heart rates between 76-103 bpm during the exam. Left Ventricle: The left ventricle is normal in size and wall thickness. The ejection fraction is estimated to be 50-55%. Left ventricular systolic function is low normal. There are no focal wall motion abnormalities. Diastolic function could not be accurately assessed due to atrial fibrillation. Right Ventricle: The right ventricle is normal in size and function. Atria: The left atrial size is normal. Right atrial size is normal. There is no Doppler evidence for an interatrial shunt. Mitral Valve: The mitral valve is normal in structure and function. There is trace mitral regurgitation. Aortic Valve: The aortic valve is trileaflet. The aortic valve opens well. There is no aortic valve stenosis. No aortic regurgitation is present. Tricuspid Valve: The tricuspid valve is normal in structure and function. There is a trace or physiologic amount of tricuspid regurgitation. Pulmonic Valve: The pulmonic valve is not well seen, but is grossly normal. There is no pulmonic valvular regurgitation. Great Vessels: The aortic root is normal size. The dimensions of the ascending aorta are normal. The IVC is of normal diameter and collapses greater than 50% with a sniff. This suggests a low right atrial pressure of 3 mm Hg. Pericardium/ Pleura There is no pericardial effusion. There is no pleural effusion. MMode/2D Measurements & Calculations LVIDd: 4.7 cm LVOT diam: 2.2 cm LVIDs: 3.3 cm Ao root diam: 3.6 cm FS: 30.7 % asc Aorta Diam: 3.2 cm IVSd: 1.00 cm Ao Arch Diam (Prox Trans): 2.9 cm LVPWd: 0.84 cm LV cuevas. diameter/BSA (cm/m^2): 1.9 LV sys. diameter/BSA (cm/m^2): 1.3 LA A2 area: 24.3 cm2 RA long axis: 4.8 cm LA A4 area: 20.3 cm2 RA area: 16.6 cm2 LA length (vol): 5.5 cm RA vol: 48.9 ml LA vol: 75.8 ml RA : 19.8 ml/m2 LA vol index: 30.7 ml/m2 IVC diam: 1.9 cm RVD1 (basal): 3.6 cm TAPSE: 2.2 cm Doppler Measurements & Calculations Ao V2 max: 105.6 cm/sec LVOT Max Eduadro: 88.4 cm/sec Ao V2 mean: 79.9 cm/sec LV V1 max P.1 mmHg Ao max P.5 mmHg LV V1 VTI: 15.5 cm Ao mean P.7 mmHg KALYN(I,D): 2.9 cm2 Ao V2 VTI: 20.9 cm KALYN(V,D): 3.3 cm2 sev ratio: 0.74 KALYN indexed to BSA (cm^2/m^2): 1.2 MV E max eduardo: 78.0 cm/sec PA V2 max: 108.0 cm/sec MV A max eduardo: 2.0 cm/sec PA V2 mean: 69.6 cm/sec MV E/A: 39.3 PA mean P.2 mmHg Med Peak E' Eduardo: 13.4 cm/sec PA pr(Accel): 44.7 mmHg E/E' med: 5.8 Lat Peak E' Eduardo: 12.1 cm/sec E/E' lat: 6.4 E/e' average: 6.1 MV dec time: 0.11 sec SV(OT): 60.4 ml Reading Physician:10:02 AM
== END ==
PROVIDERS: PCP Physician Assistant Medical; Referring Provider Internal Medicine Cardiovascular Disease; Visit Provider Internal Medicine Cardiovascular Disease
DX: I48.0 Paroxysmal atrial fibrillation (principal)
CPT/HCPCS: 93306

== ENCOUNTER → 2023-09-09 11:13 | Outpatient (CLI) | payer BC, SELFPAY ==
[2018-09-22 03:50] VITALS: BMI 33.3
--- NOTE | 2023-09-09 11:15 | DI.RAD.S_ITS ---
PROCEDURE: XR CHEST 2V INDICATIONS: Cough x 8 days TECHNIQUE: 2 views of the chest were acquired. COMPARISON: None. FINDINGS: Surgical changes and devices: None. Lungs and pleura: Low lung volumes as well as asymmetric left hemidiaphragm elevation. Mild bilateral perihilar interstitial thickening. Linear opacity in the lingula, likely atelectatic change. No alveolar consolidations, effusion, or pneumothorax. Mediastinum: Mediastinal contours are normal. Heart size is normal. Bones and chest wall: No suspicious bony abnormalities. Soft tissues appear unremarkable. IMPRESSION: 1. Bilateral perihilar interstitial thickening with differential diagnosis of viral pneumonitis, bronchitis, or early pulmonary edema. No cardiomegaly or central vascular congestion to support the latter. Dictated by: Mya Boyd M.D. on 09/09/2023 at 13:51 Approved by: Mya Boyd M.D. on 09/09/2023 at 13:53
== END ==
PROVIDERS: PCP Physician Assistant Medical; Referring Provider Urology; Visit Provider Urology
DX: R05.9 Cough, unspecified (principal)
CPT/HCPCS: 71046

== ENCOUNTER → 2024-05-12 14:59 | Outpatient (CLI) | payer BC, SELFPAY ==
[2018-09-22 03:50] VITALS: BMI 33.3
--- NOTE | 2024-05-12 | DI.MRI.S_ITS ---
PROCEDURE: MR SHOULDER RT WO CON INDICATIONS: Pain in right shoulder TECHNIQUE: Noncontrast oblique coronal T2 fast spin echo with fat saturation, oblique sagittal T1 spin echo and T2 fast spin echo with fat saturation, axial T1 spin echo and T2 fast spin echo with fat saturation through the shoulder. COMPARISON: None. FINDINGS: Image quality: Excellent. Rotator cuff: In the supraspinatus, there is full-thickness, partial width tear at the anterior half of the footprint, measuring 1.1 cm on sagittal dimension. There is minimal tendon retraction to the level of the mid humeral head. Mild tendinosis of the supraspinatus, and the infraspinatus. Low-grade interstitial tear at the critical zone of the junction of the supraspinatus and infraspinatus. Teres minor is unremarkable. Mild tendinosis of the subscapularis, without tear. No fatty atrophy or muscle edema. Bones and bursae: Moderate degenerative changes of the acromioclavicular joint. Type 2 acromion. No os acromiale. Mild subacromial/subdeltoid bursitis. Mild subchondral cystic changes at the posterior aspect of the greater tuberosity, reactive. Mild subchondral marrow edema at the lesser tuberosity, reactive as well. No acute fracture. Capsule and soft tissues: Superior labral tear, extending anteriorly to the anterior superior labrum. Tear of the posterior superior labrum as well. There is mild medial subluxation of the extra-articular biceps tendon within the bicipital groove. The intra and extra-articular biceps tendon are intact. Small glenohumeral effusion. Mild subcoracoid bursitis. IMPRESSION: 1. Moderate degenerative changes of the acromioclavicular joint. 2. Full-thickness, partial width tear of the supraspinatus. 3. Low-grade tear at the junction supraspinatus and infraspinatus. 4. Labral tear. Dictated by: Kat Delacruz M.D. on 05/12/2024 at 17:36 Approved by: Kat Delacruz M.D. on 05/12/2024 at 17:44
== END ==
PROVIDERS: PCP Physician Assistant Medical; Referring Provider Orthopaedic Surgery; Visit Provider Orthopaedic Surgery
DX: M75.111 Incomplete rotator cuff tear or rupture of right shoulder, not specified as traumatic (principal); S43.431A Superior glenoid labrum lesion of right shoulder, initial encounter; M25.511 Pain in right shoulder
CPT/HCPCS: 73221